=== PATIENT | female | born 1935 | race Hispanic/Latino ===

== ENCOUNTER → 2020-03-28 | Day surgery (SDC) | payer MEDICARE ==
[2020-03-23 13:30] LABS: BASOPHILS % 0.4 % (0.0-1.0); EOSINOPHILS # (AUTO) 0.1 (0.0-0.4); EOSINOPHILS % 1.2 % (0.0-6.0); HEMATOCRIT 30.4 % (34.2-44.1); HEMOGLOBIN 9.5 g/dL (12.0-16.0); LYMPHOCYTES # (AUTO) 1.2 (1.0-3.2); LYMPHOCYTES % 24.4 % (18.0-39.1); MEAN CORPUSCULAR HEMOGLOBIN 27.5 pg (28-32); MEAN CORPUSCULAR HGB CONC 31.3 g/dL (31-35); MEAN CORPUSCULAR VOLUME 88.1 fL (81-99); MONOCYTES # (AUTO) 0.4 (0.2-0.8); MONOCYTES % 6.9 % (4.4-11.3); NEUTROPHILS # (AUTO) 3.4 (2.1-6.9); NEUTROPHILS % 66.7 % (38.7-80.0); PLATELET COUNT 182 x10e3/uL (140-360); RED BLOOD COUNT 3.45 x10e6/uL (3.6-5.1); RED CELL DISTRIBUTION WIDTH 14.2 % (11.7-14.4)
[~2020-03-28] MED LIST: ALENDRONATE SOD70 MG PO; AMLODIPINE BESYL5 MG PO; CARVEDILOL12.5 MG PO; CRESTOR10 MG PO; FENTANYL CITRATE/PF 100MCG/2 ML INJ ONE; FERROUS SULFAT325 M1 PO; HYDRALAZINE HCL25 MG PO; LIDOCAINE HCL 2% LOCAL INJ 5 ML SDV VIAL INJ ONE; NAMZARIC 28 MG1 EACH PO; PROPOFOL IV EMULSION 10 MG/ML 20 ML VIAL ONE; SERTRALINE HCL50 MG PO; ULTRAM 50MG50 MG PO; VASCEPA1 GM PO; ZOFRAN4 MG PO
[2020-03-28 10:10] VITALS: BP 177/88
--- NOTE | 2020-03-28 11:18 | Operative Report ---
DATE OF PROCEDURE: SURGEON: Sheldon Dumont MD NAME OF THE PROCEDURE: EGD, colonoscopy. PREPROCEDURE DIAGNOSES: The patient with history of anemia, dyspepsia, rule out upper or lower GI neoplasm, AVM, peptic ulcer disease, inflammatory bowel disease, perianal disease. DESCRIPTION OF PROCEDURE: After informed written consent, premedication with monitored anesthesia care, standard adult video Olympus gastroscope was introduced into the mouth, esophagus, stomach into the 2nd portion of the duodenum, 1st and 2nd portion of the duodenum appeared to be normal and biopsies were done to rule out any evidence of malabsorption. The antrum showed a 6 mm gastric ulcer which was biopsied. Gastritis was seen in the antrum and body and this was biopsied as well. Retroflexion in the fundus appeared to be normal. Esophagus was normal. Colonoscopy was introduced into the rectum and all the way into the terminal ileum. Terminal ileum and cecum appeared to be normal. There was scattered stool in the ascending, transverse, and descending, which could not be removed due to solid particulate matter, otherwise no obstructing lesions are identified. IMPRESSION: 1. Normal colonoscopy with reduced suboptimal prep in areas. 2. Gastric ulcer, gastritis. RECOMMENDATIONS: Avoid aspirin and NSAIDs, put the patient on PPI, lansoprazole 30 mg once a day. Follow up in the office in three weeks. If anemia persists or if Hemoccult was positive the patient may need a repeat colonoscopy. Further recommendations will be based on patient's clinical course. Sheldon Dumont MD SR/MODL /[id number]
== END | disposition home or self-care (01) ==
LOC: OR 06:44
PROVIDERS: ATTEND Internal Medicine Gastroenterology
DX: R19.7 Diarrhea, unspecified (principal); K29.70 Gastritis, unspecified, without bleeding; K25.9 Gastric ulcer, unspecified as acute or chronic, without hemorrhage or perforation; K59.00 Constipation, unspecified; Z71.3 Dietary counseling and surveillance; D64.9 Anemia, unspecified; I12.9 Hypertensive chronic kidney disease with stage 1 through stage 4 chronic kidney disease, or unspecified chronic kidney disease; N18.9 Chronic kidney disease, unspecified; N20.0 Calculus of kidney; E66.9 Obesity, unspecified; E78.5 Hyperlipidemia, unspecified; F41.9 Anxiety disorder, unspecified; F32.9 Major depressive disorder, single episode, unspecified; Z88.6 Allergy status to analgesic agent; Z01.810 Encounter for preprocedural cardiovascular examination; Z01.812 Encounter for preprocedural laboratory examination; Z11.59 Encounter for screening for other viral diseases; Z68.34 Body mass index [BMI] 34.0-34.9, adult
CPT/HCPCS: 36415; 43239; 45378; 85025; 88305; 88312; 93005; J2001; J2704; J3010; U0002